=== PATIENT | male | born 1965 | race Caucasian/White ===

== ENCOUNTER → 2020-12-11 09:03 | Outpatient (BNVA) | payer SELFPAY | PROVIDERS: Visit Provider Dermatology | DX: Z01.89 Encounter for other specified special examinations (principal) ==

== ENCOUNTER → 2020-12-18 09:02 | Outpatient (BNVA) | payer SELFPAY | PROVIDERS: Referring Provider Nurse Practitioner Family; Visit Provider Dermatology | DX: Z01.89 Encounter for other specified special examinations (principal) ==

== ENCOUNTER → 2021-03-05 09:18 | Outpatient (BNVA) | payer SELFPAY | PROVIDERS: Visit Provider Dermatology | DX: Z01.89 Encounter for other specified special examinations (principal) ==

== ENCOUNTER → 2021-12-03 09:38 | Outpatient (BNVA) | payer SELFPAY | PROVIDERS: Visit Provider Dermatology | DX: Z01.89 Encounter for other specified special examinations (principal) ==

== ENCOUNTER → 2022-05-28 09:48 | Outpatient (BNVA) | payer BC, SELFPAY | PROVIDERS: Visit Provider Nurse Practitioner Family | DX: R97.20 Elevated prostate specific antigen [PSA] (principal); I10 Essential (primary) hypertension; R73.09 Other abnormal glucose; Z68.38 Body mass index [BMI] 38.0-38.9, adult; Z80.42 Family history of malignant neoplasm of prostate; Z23 Encounter for immunization | CPT/HCPCS: 80053; 80061; 83036; 84443 ==

== ENCOUNTER → 2022-11-28 16:34 | Outpatient (BNVA) | payer BC, SELFPAY | PROVIDERS: PCP Nurse Practitioner Family; Visit Provider Nurse Practitioner Family | DX: I10 Essential (primary) hypertension (principal); R73.09 Other abnormal glucose; R97.20 Elevated prostate specific antigen [PSA] | CPT/HCPCS: 80053; 80061; 83036; 84443 ==

== ENCOUNTER → 2023-02-18 10:24 | Outpatient (BNVA) | payer BC, SELFPAY | PROVIDERS: PCP Nurse Practitioner Family; Visit Provider Nurse Practitioner Family | DX: R97.20 Elevated prostate specific antigen [PSA] (principal); Z23 Encounter for immunization | CPT/HCPCS: 84153 ==

== ENCOUNTER → 2023-05-29 09:59 | Outpatient (BNVA) | payer BC, MEDICAID, SELFPAY | PROVIDERS: PCP Nurse Practitioner Family; Visit Provider Nurse Practitioner Family | DX: I10 Essential (primary) hypertension (principal) | CPT/HCPCS: 80053; 80061 ==

== ENCOUNTER → 2023-07-28 09:30 | Outpatient (BNVA) | payer BC, MEDICAID, SELFPAY | PROVIDERS: PCP Nurse Practitioner Family; Referring Provider Urology; Visit Provider Nurse Practitioner Family | DX: R97.20 Elevated prostate specific antigen [PSA] (principal) | CPT/HCPCS: G0103 ==

== ENCOUNTER → 2023-10-27 09:13 | Outpatient (BNVA) | payer BC, MEDICAID, SELFPAY | PROVIDERS: PCP Nurse Practitioner Family; Referring Provider Urology; Visit Provider Nurse Practitioner Family | DX: R97.20 Elevated prostate specific antigen [PSA] (principal) | CPT/HCPCS: 84153 ==

== ENCOUNTER → 2023-11-27 09:20 | Outpatient (BNVA) | payer BC, MEDICAID, SELFPAY | PROVIDERS: PCP Nurse Practitioner Family; Visit Provider Nurse Practitioner Family | DX: I10 Essential (primary) hypertension (principal); R97.20 Elevated prostate specific antigen [PSA] | CPT/HCPCS: 80053; 80061; G0103 ==

== ENCOUNTER 2024-03-10 10:55 | Day surgery (SDC) | payer BC, MEDICAID, SELFPAY ==
--- NOTE | 2024-03-10 11:15 | P.HPUD_ITS ---
Surgery/Procedure H&P Update DATE OF PROCEDURE: March 10, 2024 DATE H&P PERFORMED: 03/02/24 H&P UPDATE INFORMATION: I have reviewed H&P completed within last 30 days, I have examined patient prior to procedure, No changes to prior documentation and H&P is in [facility] [place] on date indicated PLANNED PROCEDURE: Operation Date: 03/10/24 12:20 Proposed Procedures p Colonoscopy 65996, G0105, Z12.11(Not Applicable) - Shimon Escobar MD
[2024-03-10 11:18] VITALS: BP 158/80; PULSE 52; RESP 18; TEMP 36.3; O2SAT 98; BMI 36.9
[2024-03-10] MEDS: sodium chloride 0.9% 500 ML 15 ML IV (11:26)
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
--- NOTE | 2024-03-10 11:58 | ANE.PACU2 ---
Inpatient post-anesthesia follow up: Airway intact: Yes Vital signs: Temperature 97.0 F Pulse Rate 56 Respiratory Rate 18 Blood Pressure 151/94 Pulse Oximetry 95 Oxygen Delivery Me thod Room Air Oxygen Flow Rate Fraction of Inspir ed Oxygen Hydration adequate: Yes Nausea and vomiting: No Pain level: 1 Mental status: Baseline
[2024-03-10 12:05] VITALS: BP 146/89; PULSE 50; RESP 16; O2SAT 96
== END 2024-03-10 12:40 | disposition home or self-care (01) ==
PROVIDERS: Visit Provider Surgery
PROC: 0DJD8ZZ Inspection of Lower Intestinal Tract, Via Natural or Artificial Opening Endoscopic (ICD-10-PCS; CPT 45378; principal; 2024-03-10 12:20)
DX: Z12.11 Encounter for screening for malignant neoplasm of colon (principal); D12.5 Benign neoplasm of sigmoid colon; I10 Essential (primary) hypertension; E78.5 Hyperlipidemia, unspecified; E66.01 Morbid (severe) obesity due to excess calories; Z68.36 Body mass index [BMI] 36.0-36.9, adult; Z79.82 Long term (current) use of aspirin
CPT/HCPCS: 45385; 88305; J2704; J7040

== ENCOUNTER → 2024-05-23 09:00 | Outpatient (BNVA) | payer BC, MEDICAID, SELFPAY | PROVIDERS: PCP Family Medicine; Visit Provider Family Medicine | DX: E55.9 Vitamin D deficiency, unspecified (principal); I10 Essential (primary) hypertension; E78.5 Hyperlipidemia, unspecified; R97.20 Elevated prostate specific antigen [PSA]; R79.89 Other specified abnormal findings of blood chemistry; Z11.59 Encounter for screening for other viral diseases; Z11.4 Encounter for screening for human immunodeficiency virus [HIV] | CPT/HCPCS: 80053; 80061; 82306; 82607; 84153; 84443; 85025; 86803; 87806 ==

== ENCOUNTER → 2024-11-23 08:15 | Outpatient (BNVA) | payer BC, MEDICAID, SELFPAY | PROVIDERS: PCP Family Medicine; Visit Provider Family Medicine | DX: R97.20 Elevated prostate specific antigen [PSA] (principal); R79.89 Other specified abnormal findings of blood chemistry; I10 Essential (primary) hypertension; R00.1 Bradycardia, unspecified | CPT/HCPCS: 80053; 84153; 85025 ==